=== PATIENT | female | born 1990 | race Caucasian/White ===

== ENCOUNTER 2017-10-26 16:11 | Inpatient (IN) | payer MEDICAID ==
[~2017-10-26] VITALS: Ht 160 cm; Wt 59.4 kg
[~2017-10-26 16:11] MED LIST: PREN-234 PO
--- NOTE | 2017-10-26 16:17 | NUR ---
PT AMBULATED TO BED 10
--- NOTE | 2017-10-26 16:20 | NUR ---
27Y/F BIB SELF C/O DIFFUSE ABDOMINAL PAIN W/ INTERMITTENT N/V/D, MC, AND DIZZINESS X 4-5 DAYS. PT DENIES ANY URINARY COMPLAINTS. PMH GALLSTONES.VSS; PATIENT POSITIONED FOR COMFORT; HOB ELEVATED; BEDRAILS UP X1; BED DOWN. ER MD MADE AWARE OF PT STATUS.
[2017-10-26 16:21] VITALS: BP 113/65
--- NOTE | 2017-10-26 17:06 | NUR ---
LAB AT PT BEDSIDE
[2017-10-26 17:19] LABS: APPEARANCE,URINE CLEAR (CLEAR); BILIRUBIN,URINE NEGATIVE (NEGATIVE); BLOOD, URINE NEGATIVE (NEGATIVE); COLOR,URINE YELLOW (YELLOW); LEUKOCYTE ESTERASE ,URINE NEGATIVE (NEGATIVE); NITRITE, URINE NEGATIVE (NEGATIVE); PH,URINE 5.5 (5.0-9.0); UGLUCOSE NEGATIVE (NEGATIVE)
[2017-10-26 17:19] LABS: BASOPHILS % (AUTO) 0.3 % (0.0-2.0); EOSINOPHILS # (AUTO) 0.4 K/uL (0-0.4); EOSINOPHILS % (AUTO) 7.2 % (0.0-4.0); HEMATOCRIT 39.5 % (36-48); HEMOGLOBIN 12.8 g/dL (12.0-16.0); LYMPHOCYTES # (AUTO) 1.2 K/uL (2.5-16.5); LYMPHOCYTES % (AUTO) 21.4 % (20.5-51.1); MEAN CORPUSCULAR HEMOGLOBIN 27 pg (27-31); MEAN CORPUSCULAR HGB CONC 32 g/dL (33-37); MEAN CORPUSCULAR VOLUME 84.6 fL (80-94); MONOCYTES # (AUTO) 0.3 K/uL (0.8-1.0); MONOCYTES % (AUTO) 5.3 % (1.7-9.3); NEUTROPHILS # (AUTO) 3.8 K/uL (1.8-7.7); NEUTROPHILS % (AUTO) 65.8 % (42.2-75.2); PLATELET COUNT (AUTO) 203 K/uL (140-450); RED BLOOD CELL COUNT(AUTO) 4.67 MIL/uL (4.20-5.40); RED CELL DISTRIBUTION WIDTH 15.8 % (11.6-13.7); WHITE BLOOD COUNT (AUTO) 5.7 K/uL (4.8-10.8)
[2017-10-26 17:32] LABS: ANION GAP 11.8 (8-16); CARBON DIOXIDE 27.7 mmol/L (21-32); CREATININE 0.7 mg/dL (0.6-1.3); POTASSIUM 3.5 mmol/L (3.5-5.1)
--- NOTE | 2017-10-26 17:35 | NUR ---
ULTRASOUND BY PT BEDSIDE
[2017-10-26 17:38] LABS: ALBUMIN 3.9 g/dL (3.4-5.0); TOTAL BILIRUBIN 1.5 mg/dL (0.0-1.0)
--- NOTE | 2017-10-26 19:15 | NUR ---
RECEIVED REPORT FROM AM NURSE. PT RESTING COMFORTABLY IN BED, PT REPORTS DECREASED, TOLERABLE PAIN AT THIS TIME. VSS, ALL NEEDS MET AT THIS TIME.
[2017-10-26] MEDS ORDERED: DOCUSATE SODIUM 100 MG GELCAP PO PRN (20:20)
[2017-10-26] MEDS ORDERED: KETOROLAC 30 MG/ML VIAL IVP PRN (20:20)
--- NOTE | 2017-10-26 20:29 | NUR ---
PER PT NO MEDS TAKEN AT HOME.
--- NOTE | 2017-10-26 20:48 | NUR ---
Patient will be admitted to care of [facility]. Admited to [facility]. Will go to [id number]. Belongings list completed. Report to ARACELI LOFTON AT BEDSIDE.
--- NOTE | 2017-10-26 21:00 | NUR ---
PT ARRIVED ON UNIT VIA GURNEY AND WAS TRANSFERRED TO BED. PT IS AOX 4 SHE IS BELARUSIAN SPEAKING BUT FLUENT IN CITIZEN OF [place]. PT IS AMBULATORY. SHE IS ADMITTED WITH GALLSTONES BUT STATED HER PAIN WAS 4/10 AT THIS TIME IN HER ABDOMEN. BOWEL SOUNDS POSITIVE IN ALL 4 QUADS. PT COOPERATIVE DURING ADMISSION, FAMILY AT BEDSIDE.
[2017-10-26 21:03] LABS: BARBITURATE, URINE NEG. ng/ml (NEG <=200); BENZODIAZEPINE, URINE NEG. ng/mL (NEG <=200); CANNABINOID, URINE NEG. ng/mL (NEG <=50); COCAINE, URINE NEG. ng/mL (NEG <=300); OPIATE, URINE NEG. ng/mL (NEG <=2000); PHENCYCLIDINE SCREEN,URINE NEG. ng/mL (NEG <=25)
[2017-10-26 21:07] LABS: PROTHROMBIN TIME 11.6 secs (10.8-13.4)
[2017-10-26 21:17] LABS: CHOL/HDL RATIO 2.6 (1-4.5); MAGNESIUM 2.1 mg/dL (1.8-2.4); PHOSPHORUS 3.3 mg/dL (2.5-4.9); THYROID STIMULATING HORMONE 1.02 uIU/mL (0.34-3.74)
[2017-10-26] MEDS: ONDANSETRON 4 MG/2 ML VIAL IM/IVP PRN (21:50)
[2017-10-26] MEDS: NACL 0.9% 1,000 ML IV SCH (21:50)
[2017-10-26] MEDS: HYDROcodone/APAP 7.5/325 MG 1 TAB PO PRN (22:36)
--- NOTE | 2017-10-26 23:00 | NUR ---
PT C/O OF 12/14 HEADACHE ABD WAS GIVEN NORCO PRN. NACL RUNNING ORDERED IV SITE PATENT. PT BED IN LOW POSITON AND CALL HAWKINS IN REACH.
[2017-10-27] VITALS: BP 91/41
--- NOTE | 2017-10-27 | NUR ---
PT IN BED RESTING BUT AROUSABLE TO NAME, SHE STATED HER PAIN WAS 0/10. GIVEN AN EXTRA BLANKET FOR COMFORT.BED IN LOW POSITION AND CALL HAWKINS IN REACH.
--- NOTE | 2017-10-27 | NUR ---
PT REMINDED ABOUT NPO STATUS NO SANCKS IN ROOM AT THIS TIME AND SIGN ON THE DOOR. IV STILL RUNNING AT 100MLS/HR. PT HAD NO C/O VOICED AT THIS TIME BUT WAS REMINDED THAT WE ARE STILL AWAITING A STOOL SAMPLE FOR BLOOD OCULT TESTING. PT VERBALIZED UNDERSTANDING.
--- NOTE | 2017-10-27 04:40 | NUR ---
PT IN BED ASLEEP NO S/S OF PAIN OR DISTESS. DVT PUMPS ON LOWER LEGS, BED IN LOWEST POSITION AND CALL HAWKINS IN REACH
[2017-10-27 06:47] LABS: BASOPHILS % (AUTO) 0.3 % (0.0-2.0); EOSINOPHILS # (AUTO) 0.4 K/uL (0-0.4); EOSINOPHILS % (AUTO) 9.3 % (0.0-4.0); HEMOGLOBIN 11.8 g/dL (12.0-16.0); LYMPHOCYTES # (AUTO) 1.7 K/uL (2.5-16.5); LYMPHOCYTES % (AUTO) 38.8 % (20.5-51.1); MEAN CORPUSCULAR HEMOGLOBIN 27 pg (27-31); MEAN CORPUSCULAR HGB CONC 33 g/dL (33-37); MEAN CORPUSCULAR VOLUME 83.9 fL (80-94); MONOCYTES # (AUTO) 0.4 K/uL (0.8-1.0); MONOCYTES % (AUTO) 8.7 % (1.7-9.3); NEUTROPHILS # (AUTO) 1.9 K/uL (1.8-7.7); NEUTROPHILS % (AUTO) 42.9 % (42.2-75.2); PLATELET COUNT (AUTO) 173 K/uL (140-450); RED BLOOD CELL COUNT(AUTO) 4.29 MIL/uL (4.20-5.40); RED CELL DISTRIBUTION WIDTH 15.4 % (11.6-13.7); WHITE BLOOD COUNT (AUTO) 4.4 K/uL (4.8-10.8)
[2017-10-27 07:05] LABS: ANION GAP 9.9 (8-16); CARBON DIOXIDE 27.3 mmol/L (21-32); CREATININE 0.7 mg/dL (0.6-1.3); POTASSIUM 4.2 mmol/L (3.5-5.1)
--- NOTE | 2017-10-27 07:10 | NUR ---
RECEIVED BEDSIDE REPORT FROM SOA ARCHITECT NURSE. PATIENT IS SLEEPING. NO SIGNS OF DISTRESS ON ROOM AIR. SKIN IS INTACT. IV ON LAC 18G INFUSING NS AT 100ML/HR. IV IS CLEAN, DRY AND INTACT. SCDS IN PLACE. SHE IS ABLE TO AMBULATE TO THE RESTROOM. SHE IS NPO IN CASE OF SURGERY. BED IN LOW POSITION. CALL LIGHT WITHIN REACH, WILL CONTINUE TO MONITOR THE PATIENT.
[2017-10-27 07:12] LABS: PHOSPHORUS 3.3 mg/dL (2.5-4.9)
[2017-10-27 08:00] VITALS: BP 91/40
[2017-10-27 08:30] VITALS: BP 101/52
[2017-10-27] MEDS: NACL 0.9% 1,000 ML IV SCH ×2 (09:00→18:56)
--- NOTE | 2017-10-27 09:00 | NUR ---
ADMINISTERED IV FLUIDS. PATIENT TOLERATING WELL. IV IS CLEAN, DRY, AND INTACT. WILL CONTINUE TO MONITOR THE PATIENT.
[2017-10-27] MEDS: ACETAMINOPHEN 325 MG TAB PO PRN (12:08)
--- NOTE | 2017-10-27 12:08 | NUR ---
ADMINISTERED PAIN MEDS. PATIENT TOLERATED WELL. WILL CONTINUE TO MONITOR THE PATIENT.
--- NOTE | 2017-10-27 13:36 | NUR ---
PATIENT IS SITTING IN BED. NO SIGNS OF DISTRESS ON ROOM AIR. WILL CONTINUE TO MONITOR THE PATIENT.
--- NOTE | 2017-10-27 14:56 | NUR ---
PATIENT HAS BEEN SCREENED AND CATEGORIZED HIGH NUTRITION RISK. PATIENT WILL BE SEEN WITHIN 1-2 DAYS OF ADMISSION. 10/27/17 10/28/[address]
[2017-10-27 16:00] VITALS: BP 104/57
--- NOTE | 2017-10-27 16:07 | NUR ---
PATIENT IS SITTING IN BED. NO COMPLAINTS AT THIS TIME. WILL CONTINUE TO MONITOR THE PATIENT.
--- NOTE | 2017-10-27 16:50 | NUR ---
PATIENT LEFT TO NUCLEAR MEDICINE. WILL ASSESS PATIENT AT THE TIME OF ARRIVAL.
[2017-10-27] MEDS ORDERED: MORPHINE SULFATE 2 MG/ML SYR IVP PRN (17:05)
--- NOTE | 2017-10-27 18:00 | NUR ---
PATIENT BACK FROM [facility]. SHE IS AWAKE, ALERT AND ORIENTEDX4. NO SIGNS OF DISTRESS. WILL CONTINUE TO MONITOR THE PATIENT.
--- NOTE | 2017-10-27 19:10 | NUR ---
RECIEVED REPORT FROM KOLE LOFTON DAY SHIFT NURSE . PT IS SITTING IN LOW BED WITH SIDE RAILS UP X 2 AND NANDO HAWKINS IN REACH. SHE IS AO X 4 AND PT IS AWARE ABOUT NEEDING A SAMPLE OF BM FOR BLOOD OCCULT TESTING. SHE HAS NO C/O OF PAIN AT THIS TIME DVT PRECAUTION PUMPS ARE ON LOWER LEGS, IV SITE PATENT AND RUNNING 100MLS OF NACL. PT IS ALSO MADE AWARE OF NPO STATUS . SURGEON,DR. JENSEN WHO IS WAITING ON THE RESULTS OF THE HIDAL TEST WILL CALL TOMORROW REGARDING THE PT SURGERY AND IF IT IS TO BE PERFORMED HERE CONSENT WILL BE SIGNED.
--- NOTE | 2017-10-27 19:10 | NUR ---
GAVE BEDSIDE REPORT TO FINISH SAW OPERATOR NURSE. ENDORSED PATIENT IN STABLE CONDITION. NO STOOL FOR ME, ENDORSED TO FINISH SAW OPERATOR NURSE TO GET STOOL OCCULT BLOOD. AND PATIENT IS NPO AFTER MIDNIGHT
--- NOTE | 2017-10-27 22:00 | NUR ---
FAMILY MEMBER BROUGHT A SNACK FOR PT. PT SITTING IN BED ON PHONE HOB UP 45% NO S/S OF PAIN OR DISTRESS NOTED. PT ATE A SNACK AND HAD TEA.
[2017-10-28] VITALS: BP 95/47
--- NOTE | 2017-10-28 02:30 | NUR ---
PT CALLED PRIMARY NURSE BECAUSE SHE WANTED TO HAVE A BM. A HAT WAS PLACED IN TOILET TO COLLECT THE SAMPLE.
[2017-10-28] MEDS: NACL 0.9% 1,000 ML IV SCH ×4 (03:51→23:00)
--- NOTE | 2017-10-28 03:51 | NUR ---
PT HAD TRIED TO HAVE A BM BUT SAID THAT SHE COULD NOT A THIS TIME. OCCULT BLOOD SAMPLE KIT AT BED SIDE AWAITING SAMPLE NO S/S OF PAIN OR DISTRESS NOTED PT SLEEPNING IN BED ABUSABLE TO NAME BED IN LOW POSITION DVT PRECAUTIONS IN PLACE AND CALL HAWKINS IN REACH. VSS AND IV RUNNING 1NACL AT 100MLS PER HOUR ORDERED IV SITE INTACT AND PATENT.
--- NOTE | 2017-10-28 05:00 | NUR ---
PT IN BED BED IN LOW POSITION AND SIDE RAILS UP X2. IV SITE PATENT AND RUNNING NACL 100MLS/HR ORDERED. PT IS RESTING IN BED NO C/O VOICED. PT VERBALIZED UNDERSTANDING THAT STAFF NEEDS A SAMPLE OF BM FOR BLOOD OCCULT TEST. PT REMAINED NPO ALL NIGHT. AWAITING A CALL BACK FROM SURGEON CASTRO REGARDING SURGERY.
[2017-10-28 06:41] LABS: BASOPHILS % (AUTO) 0.6 % (0.0-2.0); EOSINOPHILS # (AUTO) 0.4 K/uL (0-0.4); EOSINOPHILS % (AUTO) 10.1 % (0.0-4.0); HEMATOCRIT 35.2 % (36-48); HEMOGLOBIN 11.6 g/dL (12.0-16.0); LYMPHOCYTES # (AUTO) 1.8 K/uL (2.5-16.5); LYMPHOCYTES % (AUTO) 46.2 % (20.5-51.1); MEAN CORPUSCULAR HEMOGLOBIN 28 pg (27-31); MEAN CORPUSCULAR HGB CONC 33 g/dL (33-37); MEAN CORPUSCULAR VOLUME 83.1 fL (80-94); MONOCYTES # (AUTO) 0.3 K/uL (0.8-1.0); MONOCYTES % (AUTO) 8.5 % (1.7-9.3); NEUTROPHILS # (AUTO) 1.4 K/uL (1.8-7.7); NEUTROPHILS % (AUTO) 34.6 % (42.2-75.2); PLATELET COUNT (AUTO) 180 K/uL (140-450); RED BLOOD CELL COUNT(AUTO) 4.23 MIL/uL (4.20-5.40); RED CELL DISTRIBUTION WIDTH 15.5 % (11.6-13.7); WHITE BLOOD COUNT (AUTO) 3.9 K/uL (4.8-10.8)
[2017-10-28 06:53] LABS: ANION GAP 10.7 (8-16); CARBON DIOXIDE 26.3 mmol/L (21-32); CREATININE 0.7 mg/dL (0.6-1.3)
[2017-10-28 07:23] LABS: MAGNESIUM 1.8 mg/dL (1.8-2.4); PHOSPHORUS 3.9 mg/dL (2.5-4.9)
[2017-10-28 07:35] LABS: ALBUMIN 3.2 g/dL (3.4-5.0); BILIRUBIN,DIRECT 0.1 mg/dL (0.0-0.3); TOTAL BILIRUBIN 0.8 mg/dL (0.0-1.0)
--- NOTE | 2017-10-28 07:41 | NUR ---
REPORT GIVEN TO TYLER HOLT FOR TRANSFER OF CARE PT IN STABLE CONDITION.
--- NOTE | 2017-10-28 07:42 | NUR ---
RECEIVED REPORT FROM TRUCK SALES REPRESENTATIVE NURSE. PATIENT LYING DOWN IN BED SLEEPING, AROUSABLE BY VOICE. NO DISTRESS NOTED. DENIES ANY PAIN. RESPIRATIONS EVEN, UNLABORED, ON ROOM AIR. AAOX4, CALM, COOPERATIVE. SKIN INTACT. ABDOMEN SOFT, NON-DISTENDED. IV SITE INTACT, PATENT, AND INFUSING IVF PER ORDERS. LUNGS CTA ON ALL LOBES. REVIEWED PLAN OF CARE WITH PATIENT. PATIENT VERBALIZED UNDERSTANDING. SAFETY MEASURES IN PLACE, CALL LIGHT WITHIN REACH. WILL CONTINUE TO MONITOR.
[2017-10-28 08:00] VITALS: BP 100/53
--- NOTE | 2017-10-28 10:30 | NUR ---
PATIENT LYING DOWN SLEEPING, AROUSABLE BY VOICE. NO DISTRESS NOTED. DENIES ANY PAIN. CONDITION UNCHANGED. SAFETY MEASURES IN PLACE, CALL LIGHT WITHIN REACH. WILL CONTINUE TO MONITOR.
--- NOTE | 2017-10-28 12:45 | NUR ---
PATIENT LYING IN BED SLEEPING, AROUSABLE BY VOICE. NO DISTRESS NOTED. DENIES ANY PAIN AT THIS TIME CONDITION UNCHANGED. SAFETY MEASURES IN PLACE, CALL LIGHT WITHIN REACH. WILL CONTINUE TO MONITOR.
--- NOTE | 2017-10-28 12:54 | NUR ---
10/28/17 RD INITIAL ASSESSMENT COMPLETED PLEASE REFER TO NUTRITION ASSESSMENT UNDER CARE ACTIVITY FOR ESTIMATED NUTRITIONAL NEEDS. 1. CONTINUE NPO DIET MEDICALLY NECESSARY. 2. WHEN APPROPRIATE FOR PO DIET, RECOMMEND REGULAR DIET. 3. RD TO FOLLOW-UP 3-5 DAYS, MODERATE RISK TERESO HORAN, RD
--- NOTE | 2017-10-28 13:32 | NUR ---
PATIENT LYING IN BED TALKING ON THE PHONE. NO DISTRESS NOTED. CONDITION UNCHANGED. SAFETY MEASURES IN PLACE, CALL LIGHT WITHIN REACH. WILL CONTINUE TO MONITOR.
--- NOTE | 2017-10-28 15:00 | NUR ---
PATIENT SITTING IN BED TALKING ON THE PHONE. NO DISTRESS NOTED. DENIES ANY PAIN. CONDITION UNCHANGED. SAFETY MEASURES IN PLACE, CALL LIGHT WITHIN REACH. WILL CONTINUE TO MONITOR.
[2017-10-28 16:00] VITALS: BP 105/51
--- NOTE | 2017-10-28 17:48 | NUR ---
PATIENT SITTING IN BED ON THE PHONE WITH FAMILY. NO DISTRESS NOTED. DENIES ANY PAIN. CONDITION UNCHANGED. SAFETY MEASURES IN PLACE, CALL LIGHT WITHIN REACH. WILL CONTINUE TO MONITOR.
--- NOTE | 2017-10-28 19:30 | NUR ---
REPORT RECEIVED FROM TYLER LOFTON DAY NURSE REGARDING CONDITION OF PT. PT IS IN STABLE CONDITION AT THIS TIME, SHE IS IN BED IN LOW POSITION SIDE RAILS UP AND CALL HAWKINS IN REACH. IV SITE FLUSHED PATENT AND IV RUNNING NACL AT 100MLS/HR.PT DENIES PAIN AT THIS TIME, AND IS REQUESTING A SHOWER. ORDER RECEIVED FOR SHOWER, AND FAMILY A T BEDSIDE. PT REMINDED ABOUT THE BM SAMPLE NEEDED FOR OCCULT BLOOD TEST AND PT VERBALIZED UNDERSTANDING.
--- NOTE | 2017-10-28 19:30 | NUR ---
GAVE REPORT TO J2EE APPLICATION DEVELOPER NURSE FOR CONTINUITY OF CARE. PATIENT IN STABLE CONDITION.
--- NOTE | 2017-10-28 19:46 | NUR ---
PT REQUESTING IF SHE CAN TAKE A SHOWER, PER DR ROCHA, IT'S IVANNA FOR PT TO TAKE A SHOWER, ROLLY CHARLES MADE AWARE.
--- NOTE | 2017-10-28 21:00 | NUR ---
PT IN BED ON PHONE AND BED IN LOWEST POSITION WITH SIDE RAILS UP. SHE DENIES ANY PAIN AND HAD NOT HAD A BM YET. IV RUNNING AT 100MLS/HR NACL NO C/O VOICED AT THIS TIME NO S/S OF PAIN OR DISTRESS NOTED PT IS AWARE THAT SHE WILL BE NPO AFTER BREAKFAST FOR LAPAROSCOPIC CHOLECYSTECTOMY TO BE PERFORMED BY DR. GARCIA THIS AFTERNOON.
[2017-10-29] VITALS (7 sets, daily range): BP systolic 97–111; BP diastolic 52–66
--- NOTE | 2017-10-29 00:30 | NUR ---
PT IN BED SIDE RAILS UP AND BED IN LOW POSITION . SHE IS ASLEEP BUT AROUSABLE TO NAME SHE DENIES ANY PAIN AND VITAL SIGNS ARE STABLE AT THIS TIME.
[2017-10-29 06:39] LABS: BASOPHILS % (AUTO) 0.7 % (0.0-2.0); EOSINOPHILS # (AUTO) 0.5 K/uL (0-0.4); EOSINOPHILS % (AUTO) 9.4 % (0.0-4.0); HEMATOCRIT 35.8 % (36-48); HEMOGLOBIN 11.6 g/dL (12.0-16.0); LYMPHOCYTES # (AUTO) 2.1 K/uL (2.5-16.5); LYMPHOCYTES % (AUTO) 43.6 % (20.5-51.1); MEAN CORPUSCULAR HEMOGLOBIN 27 pg (27-31); MEAN CORPUSCULAR HGB CONC 33 g/dL (33-37); MEAN CORPUSCULAR VOLUME 83.6 fL (80-94); MONOCYTES # (AUTO) 0.3 K/uL (0.8-1.0); MONOCYTES % (AUTO) 6.8 % (1.7-9.3); NEUTROPHILS # (AUTO) 1.9 K/uL (1.8-7.7); NEUTROPHILS % (AUTO) 39.5 % (42.2-75.2); PLATELET COUNT (AUTO) 201 K/uL (140-450); RED BLOOD CELL COUNT(AUTO) 4.29 MIL/uL (4.20-5.40); RED CELL DISTRIBUTION WIDTH 15.5 % (11.6-13.7); WHITE BLOOD COUNT (AUTO) 4.8 K/uL (4.8-10.8)
--- NOTE | 2017-10-29 06:39 | NUR ---
PT IN BED NO S/*S OF PAIN OR DISTRESS BED IN LOW POSITION CALL HAWKINS IN REACH AND IV FLUSHED PATENT AND RUNNING 100MLS NACL. PT HAD NO BM LAST NIGHT.
[2017-10-29 07:01] LABS: CREATININE 0.7 mg/dL (0.6-1.3)
--- NOTE | 2017-10-29 07:15 | NUR ---
RECEIVED REPORT FROM NIGHTSHIFT NURSE AT BEDSIDE. PATIENT IS ASLEEP AT THIS TIME BUT AROUSABLE TO NAME. PATIENT IS ALERT AND ORIENTED X4. PATIENT HAS AN 18 G ON LEFT AC FLOWING 100 ML/HR OF NORMAL SALINE. PATIENT PRESENTS IN RIGHT LATERAL SIDE-LYING POSITION. NO DISTRESS NOTED. NO COMPLAINTS OF PAIN. LUNGS CLEAR TO AUSCULTATION. PATIENT AWARE OF POSSIBLE SURGERY AND ALSO OCCULT STOOL SAMPLE. UPDATED BOARD IN PATIENT'S ROOM. WILL CONTINUE TO MONITOR PATIENT.
--- NOTE | 2017-10-29 07:30 | NUR ---
REPORT GIVEN AT BEDSIDE TO KARTHIKEYAN RN DAY NURSE FOR TRANSFER OF CARE PT IN STABLE CONDITION.
--- NOTE | 2017-10-29 08:20 | NUR ---
PATIENT RESTING AT THIS TIME. WILL CONTINUE TO MONITOR PATIENT.
[2017-10-29] MEDS: NACL 0.9% 1,000 ML IV SCH (09:00)
--- NOTE | 2017-10-29 10:20 | NUR ---
PAGED DR. JOEL REGARDING PATIENT'S DIET STATUS. WANTED TO FOLLOW UP ON WHAT TIME HE WILL BE DOING SURGERY FOR PATIENT.
--- NOTE | 2017-10-29 11:19 | NUR ---
PAGED DR. JOEL REGARDING TIME OF PATIENT'S PROCEDURE. AWAITING CALL BACK FROM
--- NOTE | 2017-10-29 11:44 | NUR ---
PATIENT HAS BEEN KEPT NPO. AWAITING DR'S CALL BACK TO ASK ABOUT PATIENT'S PROCEDURE TIME.
--- NOTE | 2017-10-29 12:28 | NUR ---
PATIENT RESTING IN BED AT THIS TIME. PATIENT IS AWARE OF HER NPO STATUS. TOLD HER THE RISKS OF HER EATING SOMETHING BEFORE A MAJOR PROCEDURE. PATIENT VERBALIZED UNDERSTANDING. WILL CONTINUE TO MONITOR PATIENT.
--- NOTE | 2017-10-29 14:00 | NUR ---
PATIENT RESTING IN BED. NO DISTRESS NOTED. PATIENT'S FAMILY MEMBERS AT BEDSIDE. WILL CONTINUE TO MONITOR PATIENT.
[2017-10-29 14:55] LABS: PROTHROMBIN TIME 11.2 secs (10.8-13.4)
[2017-10-29] MEDS ORDERED: BUPIVACAINE-MPF 0.25% 30 ML VIAL INJ ONE (16:27)
--- NOTE | 2017-10-29 16:34 | NUR ---
PATIENT LEFT WITH O.R. NURSE FOR SURGERY. PATIENT LEFT THE UNIT IN STABLE CONDITION.
[2017-10-29] MEDS ORDERED: GLYCOPYRROLATE 0.2 MG/ML VIAL ONE (16:35)
[2017-10-29] MEDS ORDERED: PHENYLEPHRINE 10 MG/ML VIAL ONE (16:35)
[2017-10-29] MEDS ORDERED: SUCCINYLCHOLINE CHLORIDE 200 MG/10 ML VIAL IVP ONE (16:35)
[2017-10-29] MEDS ORDERED: DEXAMETHASONE 4 MG/ML VIAL ONE (16:35)
[2017-10-29] MEDS ORDERED: PROPOFOL 200 MG/20 ML VIAL IV ONE (16:35)
[2017-10-29] MEDS ORDERED: LIDOCAINE 2% 100 MG/5 ML SYR IVP ONE (16:35)
[2017-10-29] MEDS ORDERED: KETOROLAC 30 MG/ML VIAL ONE (16:35)
[2017-10-29] MEDS ORDERED: ROCURONIUM 50 MG/5 ML VIAL IV ONE (16:35)
[2017-10-29] MEDS ORDERED: ePHEDrine 50 MG/ML VIAL ONE (16:35)
[2017-10-29] MEDS ORDERED: DESFLURANE 240 ML BTL INH ONE (16:35)
[2017-10-29] MEDS ORDERED: MIDAZOLAM 2 MG/2 ML VIAL ONE (16:46)
[2017-10-29] MEDS ORDERED: fentaNYL 0.05 MG/ML VIAL ONE (16:47)
[2017-10-29] MEDS ORDERED: ONDANSETRON 4 MG/2 ML VIAL IVP PRN (17:05)
[2017-10-29] MEDS ORDERED: THROMBIN KIT 20 MU VIAL TP ONE (17:58)
[2017-10-29] MEDS: HYDROmorphone 1 MG/ML AMP IVP PRN ×4 (18:35→19:05)
[2017-10-29] MEDS ORDERED: HYDROmorphone PFS 2 MG/ML SYR ONE (18:41)
--- NOTE | 2017-10-29 19:25 | NUR ---
RECEIVED FROM OPERATING ROOM/RECOVERY SLEEPY BUT WOKE UP WHEN TOUCHED. S/P LAP CHOLECYSTECTOMY BY MD JOEL/SURGEON. FAMILY MEMBERS IN HERE . IVF SITE INTACT AND NO SOB. 02 SAT ROOM AIR IS 95 %. CALL LIGHT WITH IN REACH. ORIENTED FAMILY MEMBERS RE: CARE PLANS FOR THE NIGHT AND CALL LIGHT USE. 4 INCISION SITE NOT BLEEDING AND WITH SILICONE DRESSING. AFEBRILE. RAPID RESPONSE MECHANISM EXPLAINED THE FAMILY. PT. SLEEPY STILL.
[2017-10-29] MEDS: DEXT 5% / NACL 0.45% 1,000 ML IV SCH (19:59)
--- NOTE | 2017-10-29 20:17 | NUR ---
PT. SEEN BY MD. ROCHA . PT. WNT BACK TO SLEEP. REMINDED FAMILY MEMBER TO CALL ME IF SHE COMPLAINS OF PAIN.
--- NOTE | 2017-10-29 20:20 | NUR ---
PT. REMINDED TO DO INCENTIVE SPIROMETRY AT LEAST EVERY HOUR EXPLAINED BY . CALLED MD DYKES RT PER RECOVERY NURSE ARBEN HE WANTED TO BE CALLED IF HEPATIC FUNCTION ALREADY IN. LEFT MESSAGE TO CALL ME BACK FOR THE RESULTS RT ANSWERING MACHINE ON. INFORMED CHARGE NURSE.
--- NOTE | 2017-10-29 21:00 | NUR ---
MD JOEL CALLED BACK . INFORMED RE: HEPATIC FUNCTION RESULTS. NO ORDERS GIVEN.
[2017-10-29] MEDS: MORPHINE SULFATE 2 MG/ML SYR IVP PRN (22:08)
[2017-10-29] MEDS: ONDANSETRON 4 MG/2 ML VIAL IM/IVP PRN (22:08)
[2017-10-29 22:53] LABS: ALBUMIN 3.3 g/dL (3.4-5.0); BILIRUBIN,DIRECT 0.1 mg/dL (0.0-0.3); TOTAL BILIRUBIN 0.7 mg/dL (0.0-1.0)
[2017-10-30 01:04] VITALS: BP 105/50
[2017-10-30] MEDS: MORPHINE SULFATE 2 MG/ML SYR IVP PRN ×2 (01:06→10:04)
--- NOTE | 2017-10-30 01:11 | NUR ---
PT. ASSISTED TO BEDPAN. ABLE TO URINATE. MOTHER AND SISTER IN HERE WATCHING OVER HER. INCISION SITE INTACT AND NO BLEEDING. INCENTIVE SPIROMETRY USED AND ENCOURAGED TO USE IT MUCH SHE CAN. "OK"
[2017-10-30 03:02] VITALS: BP 103/50
--- NOTE | 2017-10-30 03:04 | NUR ---
PT5. AWAKE AT THIS TIME AND CRYING . STATED TH AT SHE HAS PAIN IN INCISION SITE STILL INSPITE OF MORPHINE IVP GIVEN EARLIER. CALLED MD ROCHA AND TOLD HIM ABOUT IT. TOLD HIM [facility] THE BLOOD PRESSURE AT PRESENT. STATED TO GIVE THE P.O. NORCO. INFORMED PT. SHE AGREES. WILL MEDICATE ORDERED BY .
[2017-10-30] MEDS: HYDROcodone/APAP 7.5/325 MG 1 TAB PO PRN ×3 (03:07→21:29)
[2017-10-30 06:15] LABS: BASOPHILS % (AUTO) 0.2 % (0.0-2.0); EOSINOPHILS % (AUTO) 0.1 % (0.0-4.0); HEMOGLOBIN 11.9 g/dL (12.0-16.0); LYMPHOCYTES # (AUTO) 1.5 K/uL (2.5-16.5); LYMPHOCYTES % (AUTO) 17.4 % (20.5-51.1); MEAN CORPUSCULAR HEMOGLOBIN 27 pg (27-31); MEAN CORPUSCULAR HGB CONC 33 g/dL (33-37); MEAN CORPUSCULAR VOLUME 82.7 fL (80-94); MONOCYTES # (AUTO) 0.5 K/uL (0.8-1.0); NEUTROPHILS # (AUTO) 6.3 K/uL (1.8-7.7); NEUTROPHILS % (AUTO) 76.3 % (42.2-75.2); PLATELET COUNT (AUTO) 205 K/uL (140-450); RED BLOOD CELL COUNT(AUTO) 4.36 MIL/uL (4.20-5.40); WHITE BLOOD COUNT (AUTO) 8.3 K/uL (4.8-10.8)
[2017-10-30] MEDS: DEXT 5% / NACL 0.45% 1,000 ML IV SCH (06:50)
[2017-10-30 06:59] LABS: ALBUMIN 3.2 g/dL (3.4-5.0); CREATININE 0.7 mg/dL (0.6-1.3); TOTAL BILIRUBIN 0.9 mg/dL (0.0-1.0)
[2017-10-30 07:23] LABS: ANION GAP 12.1 (8-16); CARBON DIOXIDE 26.7 mmol/L (21-32); POTASSIUM 3.8 mmol/L (3.5-5.1)
--- NOTE | 2017-10-30 07:26 | NUR ---
ENDORSED TO THE NEXT RN FOR CONTINUITY OF CARE. AWAKE AND ALERT AT THIS TIME. SISTER AT BEDSIDE.
--- NOTE | 2017-10-30 07:30 | NUR ---
RECEIVED PT'S REPORT FROM SEARCH ENGINE OPTIMIZER NURSE, JASSI, PT IS AWAKE LYING ON THE BED WITH SISTER ON THE BEDSIDE. PT HAS AN IV FLUID OF D5 1/2 NS AT LEFT AC RUNNING AT 100ML/HR. SIDE RAILS ARE UP AND CALL LIGHT WITHIN REACH. NO SIGN OF DISTRESS NOTED AND WILL CONTINUE TO MONITOR.
[2017-10-30 08:00] VITALS: BP 101/60
--- NOTE | 2017-10-30 09:49 | NUR ---
DR. JOEL CALLED AND WAS ABLE TO TALKED TO HIM AND REPORTED THE PT'S LABS AND STATUS AT THE MOMENT. DR. LOJA SAID THAT IF THE PT CAN TOLERATED HER LUNCH THEN SHE MIGHT POSSIBLY BE DISCHARGE TODAY.
--- NOTE | 2017-10-30 10:15 | NUR ---
PT WAS PUT ON A NC AT 2L O2 BEC THE PT VERBALIZED THAT SHE IS HAVING SHORTNESS OF BREATH, RESIDENTS VISITED AND TALKED TO THE PT. CALL LIGHT WITHIN REACH AND WILL CONTINUE TO MONITOR.
--- NOTE | 2017-10-30 10:45 | NUR ---
CXR WAS DONE TO THE PATIENT. NO SIGN OF DISTRESS NOTED. WILL CONTINUE TO MONITOR.
[2017-10-30] MEDS ORDERED: CALCIUM CARBONATE 500 MG TAB.CHEW PO PRN (10:55)
--- NOTE | 2017-10-30 11:30 | NUR ---
ASSISTED PT TO AMBULATE FROM BED TO THE DOOR OF THE ROOM WITH MOTHER ASSISTING ALSO, PT FELT NAUSEATED AND WAS ASSISTED BACK TO BED. NO OTHER SIGN OF DISTRESS NOTED ON THE PT AT THIS TIME. WILL CONTINUE TO MONITOR.
--- NOTE | 2017-10-30 11:57 | NUR ---
PT IS AWAKE AND LYING ON THE BED, WITH MOTHER ON THE BEDSIDE, PT VERBALIZED A PAIN RATE OF 6/10. NO SIGN OF DISTRESS NOTED, CALL LIGHT WITHIN REACH AND WILL CONTINUE TO MONITOR.
--- NOTE | 2017-10-30 14:00 | NUR ---
PT WAS ASSISTED TO AMBULATE ON THE HALLWAY AND ASSISTED BACK TO THE BED. PT TOLERATED IT WITHOUT ANY SIGN OF DISTRESS.
[2017-10-30] MEDS: NACL 0.9% 1,000 ML IV SCH ×2 (15:00→20:45)
[2017-10-30 16:00] VITALS: BP 110/63
--- NOTE | 2017-10-30 16:26 | NUR ---
PT IS AWAKE AND VERBALIZED A PAIN RATE OF 8/10, VITAL SIGNS TAKEN AND PAIN MEDICATION GIVEN, PT TOLERATED IT. NO SIGN OF DISTRESS NOTED, CALL LIGHT WITHIN REACH AND WILL CONTINUE TO MONITOR.
--- NOTE | 2017-10-30 17:05 | NUR ---
PT WAS SEEN AMBULATING IN THE HALLWAY BEING ASSISTED BY THE SISTER IN LAW, SISTER IN LAW REPORTED THAT PT FELT DIZZY AND WAS ASSISTED BACK TO BED.NO OTHER SISG OF DISCOMFORT NOTED. WILL MONITOR.
[2017-10-30] MEDS: ACETAMINOPHEN 325 MG TAB PO PRN (17:11)
--- NOTE | 2017-10-30 17:11 | NUR ---
PT HAS AN ELEVATED TEMPERATURE OF 100.9, PT WAS GIVEN TYLENOL, PT IS LYING ON THE BED WITH FAMILY ON THE BEDSIDE. NO SIGN OF DISTRESS NOTED AND WILL CONTINUE TO MONITOR.
--- NOTE | 2017-10-30 17:45 | NUR ---
PT'S TEMPERATURE WAS CHECKED AND TEMP IS 99.6. FEVER IS TRENDING DOWN. WILL CONTINUE TO MONITOR.
--- NOTE | 2017-10-30 19:10 | NUR ---
ENDORSED PT TO [facility] SHIFT NURSERASHEED FOR CONTINUITY OF CARE, PT IS STABLE AT THIS TIME.
--- NOTE | 2017-10-30 19:15 | NUR ---
RECEIVED PT IN STABLE CONDITION FROM AM NURSE. AWAKE,ALERT,AND ORIENTEDX4.ON MS . NO C/O ANY PAIN AT THIS TIME. S/P LAP RIRI WITH X3 SMALL INCISIONS ON THE ABDOMEN. WITH NO BLEEDING NOTED. FAMILY AT BEDSIDE. PLAN OF CARE DISCUSSED AND VERBALIZED UNDERSTANDING. BED ON LOW POSITION.CALL LIGHT PLACED WITHIN EASY REACH. WILL CONTINUE TO MONITOR.
--- NOTE | 2017-10-30 22:30 | NUR ---
PT ASLEEP. NO S/S OF ANY PAIN NOTED. WILL CONTINUE TO MONITOR.
--- NOTE | 2017-10-30 23:30 | NUR ---
PT AWAKE. ENCOURAGED TO USE INCENTIVE SPIROMETER AND ALSO TO TURN TO SIDE WHILE IN BED.
[2017-10-30 23:47] VITALS: BP 93/52
--- NOTE | 2017-10-31 01:30 | NUR ---
MADE ROUNDS. ASLEEP. NO S/S OF ANY PAIN. FAMILY AT BEDSIDE. WILL CONTINUE TO MONITOR.
[2017-10-31] MEDS: NACL 0.9% 1,000 ML IV SCH ×2 (02:00→06:45)
--- NOTE | 2017-10-31 03:00 | NUR ---
PT ASLEEP. NO S/S OF ANY DISCOMFORT NOTED. WILL CONTINUE TO MONITOR
[2017-10-31] MEDS: HYDROcodone/APAP 7.5/325 MG 1 TAB PO PRN ×2 (04:45→11:38)
[2017-10-31] MEDS ORDERED: SIMETHICONE 80 MG TAB.CHEW PO SCH (05:30)
[2017-10-31] MEDS ORDERED: POLYETHYLENE GLYCOL 17 GM/PKT PO SCH (06:00)
[2017-10-31 06:42] LABS: BASOPHILS % (AUTO) 0.3 % (0.0-2.0); EOSINOPHILS # (AUTO) 0.1 K/uL (0-0.4); EOSINOPHILS % (AUTO) 2.1 % (0.0-4.0); HEMATOCRIT 34.4 % (36-48); HEMOGLOBIN 11.2 g/dL (12.0-16.0); LYMPHOCYTES # (AUTO) 1.6 K/uL (2.5-16.5); LYMPHOCYTES % (AUTO) 25.7 % (20.5-51.1); MEAN CORPUSCULAR HEMOGLOBIN 27 pg (27-31); MEAN CORPUSCULAR HGB CONC 32 g/dL (33-37); MEAN CORPUSCULAR VOLUME 83.7 fL (80-94); MONOCYTES # (AUTO) 0.5 K/uL (0.8-1.0); MONOCYTES % (AUTO) 7.5 % (1.7-9.3); NEUTROPHILS % (AUTO) 64.4 % (42.2-75.2); PLATELET COUNT (AUTO) 174 K/uL (140-450); RED BLOOD CELL COUNT(AUTO) 4.11 MIL/uL (4.20-5.40); RED CELL DISTRIBUTION WIDTH 15.4 % (11.6-13.7); WHITE BLOOD COUNT (AUTO) 6.3 K/uL (4.8-10.8)
[2017-10-31 06:54] LABS: ANION GAP 8.9 (8-16); CARBON DIOXIDE 28.2 mmol/L (21-32); CREATININE 0.7 mg/dL (0.6-1.3); POTASSIUM 4.1 mmol/L (3.5-5.1)
[2017-10-31 06:59] LABS: MAGNESIUM 1.7 mg/dL (1.8-2.4); PHOSPHORUS 3.3 mg/dL (2.5-4.9)
--- NOTE | 2017-10-31 07:10 | NUR ---
ENDORSED PT IN STABLE CONDITION TO AM NURSE.
--- NOTE | 2017-10-31 07:20 | NUR ---
RECEIVED PT REPORT FROM CONCESSION ATTENDANT NURSE. AWAKE, ALERT, AND ORIENTEDX4. C/O NAUSEA. NO C/O PAIN. WILL NOTIFY MD. S/P LAP RIRI WITH X3 SMALL INCISIONS SEALED WITH DERMABOND ON THE ABDOMEN. NO DRAINAGE OR REDNESS NOTED. SISTER AT BEDSIDE. PLAN OF CARE DISCUSSED AND VERBALIZED UNDERSTANDING. BED ON LOW POSITION.CALL LIGHT PLACED WITHIN REACH. WILL CONTINUE TO MONITOR.
[2017-10-31] MEDS ORDERED: ONDANSETRON 4 MG TAB PO PRN (07:35)
--- NOTE | 2017-10-31 07:55 | NUR ---
ZOFRAN GIVEN FOR NAUSEA/VOMITING. PT TOLERATED WELL.
[2017-10-31] MEDS ORDERED: ONDANSETRON 4 MG TAB ONE (07:59)
[2017-10-31 08:00] VITALS: BP 104/54
--- NOTE | 2017-10-31 08:05 | NUR ---
PT WENT TO RESTROOM. PT STATED SHE PASSED GAS BUT NO BM YET.
[2017-10-31] MEDS ORDERED: MAGNESIUM OXIDE 400 MG TAB PO SCH (11:30)
[2017-10-31] MEDS ORDERED: ACET-9529 PO (11:40)
[2017-10-31] MEDS ORDERED: DOCU-299 PO (11:40)
[2017-10-31] MEDS ORDERED: ONDA4TAB4 PO (11:40)
[2017-10-31] MEDS ORDERED: IBUP-2213 PO ×2 (13:02→13:10)
--- NOTE | 2017-10-31 14:25 | NUR ---
PT DISCHARGED PER MD ORDER. DISCHARGE INSTRUCTIONS GIVEN. MEDICATIONS TEACHING GIVEN. INCISION CARE GIVEN. PT VERBALIZED UNDERSTANDING. IV DC'ED, TIP INTACT, PRESSURE APPLIED. WRIST BAND REMOVED. PT LEFT IN STABLE CONDITION AND WITH ALL HER BELONGINGS. PT'S MOTHER IS HERE TO TAKE THE PT HOME.
== END 2017-10-31 14:30 | disposition home or self-care (01) | DRG 263 ==
LOC: MED 16:11 → MTU 20:19
PROVIDERS: ADMIT Student in an Organized Health Care Education/Training Program; ATTEND Student in an Organized Health Care Education/Training Program
PROC: 0FT44ZZ Resection of Gallbladder, Percutaneous Endoscopic Approach (ICD-10-PCS; principal; 2017-10-29 16:30)
DX: K80.00 Calculus of gallbladder with acute cholecystitis without obstruction (principal); N17.0 Acute kidney failure with tubular necrosis; E44.0 Moderate protein-calorie malnutrition; E83.42 Hypomagnesemia; Z68.23 Body mass index [BMI] 23.0-23.9, adult; D64.9 Anemia, unspecified; E83.51 Hypocalcemia; K21.9 Gastro-esophageal reflux disease without esophagitis
CPT/HCPCS: 36415; 71045; 76700; 78445; 80048; 80053; 80076; 80305; 81003; 81025; 82150; 82272; 83036; 83690; 83735; 83880; 84100; 84436; 84443; 84479; 85025; 85610; 85730; 87081; 93005; 99285; A9510; J0330; J1100; J1170; J1885; J2001; J2250; J2270; J2370; J2405; J2704; J3010; J3490; J7030; Q0092; Q0162

== ENCOUNTER 2018-02-05 16:10 | Emergency (ER) | payer MEDICAID ==
[~2018-02-05] VITALS: Ht 160 cm; Wt 61.7 kg
[~2018-02-05 16:10] MED LIST changes: +ACET-9529 PO; +DOCU-299 PO; +IBUP-2213 PO; +ONDA4TAB4 PO; -PREN-234 PO
[2018-02-05 16:28] VITALS: BP 125/89
--- NOTE | 2018-02-05 16:34 | NUR ---
C/O HEAD ACHE X 7 DAYS WITH DIZZINESS AND SOME NAUSEA; HAS BEEN TAKING IBUPROFEN WITH SOME RELIEF HX; DENIES RX; DENIES
--- NOTE | 2018-02-05 17:12 | NUR ---
Patient being evaluated by physician at bedside.
[2018-02-05] MEDS ORDERED: ACETAMINOPHEN 325 MG TAB PO ONE (17:15)
[2018-02-05] MEDS ORDERED: PROCHLORPERAZINE 10 MG/2 ML VIAL IM ONE (17:15)
[2018-02-05 18:20] VITALS: BP 128/90
== END 2018-02-05 18:20 | disposition home or self-care (01) ==
LOC: MED 16:10
DX: R51 Headache (principal); N39.0 Urinary tract infection, site not specified; Z79.899 Other long term (current) drug therapy
CPT/HCPCS: 81002; 81025; 96372; 99283; J0780

== ENCOUNTER 2018-04-03 13:41 | Emergency (ER) | payer MEDICAID ==
[~2018-04-03] VITALS: Ht 157.5 cm; Wt 62.1 kg
[2018-04-03 13:52] VITALS: BP 118/70
[2018-04-03 16:42] LABS: BASOPHILS % (AUTO) 0.5 % (0.0-2.0); EOSINOPHILS # (AUTO) 0.2 K/uL (0-0.4); EOSINOPHILS % (AUTO) 2.9 % (0.0-4.0); HEMOGLOBIN 12.9 g/dL (12.0-16.0); LYMPHOCYTES # (AUTO) 2.4 K/uL (2.5-16.5); LYMPHOCYTES % (AUTO) 29.8 % (20.5-51.1); MEAN CORPUSCULAR HEMOGLOBIN 28 pg (27-31); MEAN CORPUSCULAR HGB CONC 33 g/dL (33-37); MEAN CORPUSCULAR VOLUME 85.6 fL (80-94); MONOCYTES # (AUTO) 0.4 K/uL (0.8-1.0); MONOCYTES % (AUTO) 4.9 % (1.7-9.3); NEUTROPHILS % (AUTO) 61.9 % (42.2-75.2); PLATELET COUNT (AUTO) 205 K/uL (140-450); RED BLOOD CELL COUNT(AUTO) 4.55 MIL/uL (4.20-5.40); RED CELL DISTRIBUTION WIDTH 16.4 % (11.6-13.7); WHITE BLOOD COUNT (AUTO) 8.1 K/uL (4.8-10.8)
[2018-04-03 16:48] LABS: APPEARANCE,URINE SLIGHTLY CLOUDY (CLEAR); COLOR,URINE RED (YELLOW); LEUKOCYTE ESTERASE ,URINE TRACE (NEGATIVE); NITRITE, URINE NEGATIVE (NEGATIVE)
[2018-04-03 16:49] LABS: BLOOD, URINE 4+ (NEGATIVE); PH,URINE 6.5 (5.0-9.0)
[2018-04-03 16:50] LABS: BILIRUBIN,URINE NEGATIVE (NEGATIVE); UGLUCOSE NEGATIVE (NEGATIVE)
[2018-04-03 16:53] LABS: RBC,URINE TOO NUMEROUS TO COUN /HPF (0-5)
[2018-04-03 19:14] VITALS: BP 112/69
== END 2018-04-03 19:15 | disposition home or self-care (01) ==
LOC: MED 13:41
DX: O46.91 Antepartum hemorrhage, unspecified, first trimester (principal); Z3A.08 8 weeks gestation of pregnancy; Z79.1 Long term (current) use of non-steroidal anti-inflammatories (NSAID); Z79.899 Other long term (current) drug therapy
CPT/HCPCS: 36415; 76817; 81001; 81025; 84702; 85025; 86900; 86901; 87086; 99285; Q0092

== ENCOUNTER 2018-09-19 20:50 | Emergency (ER) | payer SELFPAY ==
[~2018-09-19] VITALS: Ht 157.5 cm; Wt 63.5 kg
[2018-09-19 20:53] VITALS: BP 108/74
--- NOTE | 2018-09-19 20:55 | NUR ---
PT AMBULATORY TO ER LOBBY W/ STEADY GAIT IN STABLE CONDITION.
--- NOTE | 2018-09-19 21:59 | NUR ---
PT AMBULATED TO BED 01.
--- NOTE | 2018-09-19 22:20 | NUR ---
PT TO ED WITH C/O CONSTANT HEADACHE X 8 MOS. PT DENIES N/V. NO NEURO DEFECITS NOTED. PER PT "I HAVE HAD THIS SINCE JANUARY AND IT HASNT GONE AWAY, IT GOT WORSE LIKE 2 MOS AGO SO I CAME IN TODAY" PT PLACED INTO BED, PENDING MD DANIELLE.
[2018-09-19] MEDS ORDERED: KETOROLAC 30 MG/ML VIAL IM ONE (23:15)
[2018-09-20] MEDS ORDERED: SUMAtriptan 6 MG/0.5 ML VIAL SUBQ ONE
[2018-09-20] MEDS ORDERED: PROCHLORPERAZINE 5 MG TAB PO ONE
--- NOTE | 2018-09-20 00:45 | NUR ---
PT REPORTS RELIEF OF PAIN POST PULL WORKER.
[2018-09-20 01:18] VITALS: BP 110/68
--- NOTE | 2018-09-20 01:18 | NUR ---
Patient discharged with v/s stable. Written and verbal after care instructions given and explained. Patient alert, oriented and verbalized understanding of instructions. Ambulatory with steady gait. All questions addressed prior to discharge. ID band removed. Patient advised to follow up with PMD. Rx of FIORCET given. Patient educated on indication of medication including possible reaction and side effects. Opportunity to ask questions provided and answered.
== END 2018-09-20 01:18 | disposition home or self-care (01) ==
LOC: MED 20:50
DX: G43.909 Migraine, unspecified, not intractable, without status migrainosus (principal); Z79.899 Other long term (current) drug therapy
CPT/HCPCS: 96372; 99283; J1885; J3030; Q0164

== ENCOUNTER 2022-04-04 15:51 | Emergency (ER) | payer MEDICAID ==
[~2022-04-04] VITALS: Ht 157.5 cm; Wt 65.1 kg
[~2022-04-04 15:51] MED LIST changes: +ONDA4TAB12 PO; -ONDA4TAB4 PO
[2022-04-04 16:07] VITALS: BP 117/68
--- NOTE | 2022-04-04 16:21 | NUR ---
TO ER BED 6
--- NOTE | 2022-04-04 16:41 | NUR ---
32 y/o female bib self with c/o rash to left side of neck x 5 days. Per patient, she was bit by a bug and thats how the rash started. Patient did not see what bit her. Patient said it started with redness. Patient is noted with redness and a scab to the left side of neck. Patient has been putting Vaporub to neck area. Medical History: Denies NKDA
--- NOTE | 2022-04-04 16:44 | NUR ---
MIGUEL Ulloa evaluating patient at bedside.
[2022-04-04] MEDS ORDERED: IBUP-2213 PO (17:00)
[2022-04-04] MEDS ORDERED: CEPH-588 PO (17:00)
[2022-04-04] MEDS ORDERED: MUPI2CRE22 TP (17:00)
[2022-04-04 17:15] VITALS: BP 115/64
--- NOTE | 2022-04-04 17:15 | NUR ---
Patient discharged with v/s stable. Written and verbal after care instructions given. Patient alert, oriented and verbalized understanding of instructions. Ambulatory with steady gait. All questions addressed prior to discharge. ID band removed. Patient advised to follow up with PMD. Rx of Keflex, Ibuprofen and Mupirocin given. Opportunity to ask questions provided and answered. WORK NOTE HANDED TO PATIENT.
--- NOTE | 2022-04-04 17:18 | NUR ---
Chart checked and completed. The patient's care was reviewed and supervised by Ekaterina Lei RN.
== END 2022-04-04 17:15 | disposition home or self-care (01) ==
LOC: MED 15:51
DX: L01.00 Impetigo, unspecified (principal)
CPT/HCPCS: 99283

== ENCOUNTER 2022-04-11 13:32 | Emergency (ER) | payer MEDICAID ==
[~2022-04-11] VITALS: Ht 157.5 cm; Wt 64.9 kg
[~2022-04-11 13:32] MED LIST changes: +CEPH-588 PO; +MUPI2CRE22 TP
[2022-04-11 13:55] VITALS: BP 121/80
--- NOTE | 2022-04-11 14:06 | NUR ---
Note [facility] in EDM - 04/11/22 at 1450 by [email or web address] Patient discharged with v/s stable. Written and verbal after care instructions ABOUT IMPETIGO given and explained. Patient alert, oriented and verbalized understanding of instructions. Ambulatory with steady gait. All questions addressed prior to discharge. ID band removed. Patient advised to follow up with PMD. Rx of BACTROBAN AND BACTRIM 400-80MG given. Patient educated on indication of medication including possible reaction and side effects. Opportunity to ask questions provided and answered.
[2022-04-11] MEDS ORDERED: SULF-58 PO (14:17)
[2022-04-11] MEDS ORDERED: BACTO TP (14:17)
--- NOTE | 2022-04-11 14:46 | NUR ---
Patient discharged with v/s stable. Written and verbal after care instructions ABOUT IMPETIGO given and explained. Patient alert, oriented and verbalized understanding of instructions. Ambulatory with steady gait. All questions addressed prior to discharge. ID band removed. Patient advised to follow up with PMD. Rx of BACTROBAN AND BACTRIM 400-80MG given. Patient educated on indication of medication including possible reaction and side effects. Opportunity to ask questions provided and answered.
== END 2022-04-11 14:46 | disposition home or self-care (01) ==
LOC: MED 13:32
DX: L01.00 Impetigo, unspecified (principal)
CPT/HCPCS: 99283